=== PATIENT | female | born 1965 | race Caucasian/White ===

== ENCOUNTER 2025-05-25 19:30 | Emergency (ER) | payer OTHER ==
[~2025-05-25] VITALS: Ht 157.5 cm; Wt 90.9 kg
[2025-05-25] MEDS: POLYETHYLENE GLYCOL 3350 17 GM PACKET PO ONE (22:55)
[2025-05-25] MEDS ORDERED: SENN-376 PO (23:43)
[2025-05-25] MEDS ORDERED: POLY17PO47 PO (23:43)
[2025-05-26 00:03] VITALS: BP 112/58; PULSE 60; RESP 16; TEMP 98.805344; O2SAT 100
== END 2025-05-26 00:04 | disposition home or self-care (01) ==
LOC: EMS 19:34
DX: K59.00 Constipation, unspecified (principal); K62.5 Hemorrhage of anus and rectum; I10 Essential (primary) hypertension; E78.00 Pure hypercholesterolemia, unspecified; Z90.710 Acquired absence of both cervix and uterus
CPT/HCPCS: 99282; Z7502; Z7610